=== PATIENT | female | born 2000 | race African-American/Black ===

== ENCOUNTER 2021-04-28 17:01 | Emergency (ER) | payer MEDICAID ==
[~2021-04-28] VITALS: Ht 165.1 cm; Wt 55.0 kg
[2021-04-28] MEDS ORDERED: ACETAMINOPHEN 500MG TABLET PO ONE (18:30)
[2021-04-28 19:18] VITALS: BP 118/70
== END 2021-04-28 19:20 | disposition home or self-care (01) ==
LOC: ER 18:57
DX: M54.9 Dorsalgia, unspecified (principal)
CPT/HCPCS: 81025; 99283